=== PATIENT | female | born 1995 | race African-American/Black ===

== ENCOUNTER 2016-06-13 14:04 | Inpatient (IN) | payer MEDICAID, OTHER ==
[~2016-06-13] VITALS: Ht 170.2 cm; Wt 85.3 kg
[~2016-06-13 14:04] MED LIST: FERROUS SULFATE
--- NOTE | 2016-06-13 14:04 | NUR ---
1401- PT BIBA TO BED 1 AT THIS TIME.
[2016-06-13 14:05] VITALS: BP 118/64
--- NOTE | 2016-06-13 14:13 | NUR ---
DR. LUA AT BEDSIDE
[2016-06-13] MEDS ORDERED: ACTIVATED CHARCOAL W/SORBITOL 50 GM/240 ML TUBE PO ONE (14:15)
--- NOTE | 2016-06-13 14:16 | NUR ---
POLICE AT BEDSIDE
--- NOTE | 2016-06-13 14:21 | NUR ---
DR. LUA AT BEDSIDE COUNTING THE EXTRA STRENGTH TYLENOL
--- NOTE | 2016-06-13 14:28 | NUR ---
BIBA AFTER TAKING APPROXIMATELY 20 HEADACHE PILLS; ACETAMINOPHEN 250MG, ASPIRIN 250MG, CAFFEINE 65MG. PT DENIES SUICIDAL IDEATION, SONYA Holcomb STATES SUICIDE NOTE FOUND AT SCENE. DENIES N/V/D; SKIN IS PINK/WARM/DRY; AAOX4 WITH EVEN AND STEADY GAIT; LUNGS CLEAR BL; HR EVEN AND REGULAR; PT DENIES ANY FEVER, CP, SOB, OR COUGH AT THIS TIME; PATIENT STATES PAIN OF 0/10 AT THIS TIME; PATIENT POSITIONED FOR COMFORT; HOB ELEVATED; BEDRAILS UP X2; BED DOWN.
--- NOTE | 2016-06-13 14:44 | NUR ---
PT AAO, STILL DENYING SHE WANTS TO COMMIT SUICIDE, VITAL SIGN STABLE.
--- NOTE | 2016-06-13 15:04 | NUR ---
TALKED TO POISON CONTROL SPOKE TO ROLAND
--- NOTE | 2016-06-13 15:06 | NUR ---
RELAYED TO DR. LUA RESULT OF URINE DIPSTICK
--- NOTE | 2016-06-13 15:13 | NUR ---
PT AAO, SMILING, NO AGITATION, NO DIZZINESS, NO C/O PAIN, SKIN WARM TO TOUCH RESP. EVEN AND UNLABORED, DENIES SUICIDAL IDEATION AT THIS TIME.
--- NOTE | 2016-06-13 15:21 | NUR ---
PT WENT TO THE BATHROOM CLAIMED I WANT TO VOMIT
--- NOTE | 2016-06-13 15:30 | NUR ---
PT BACK FROM BATHROOM, PT SAYS THAT SHE VOMIT IN THE BATHROOM, PT EATING CRACKERS AT THIS TIME, CLAIMED I FEEL BETTER.
--- NOTE | 2016-06-13 15:53 | NUR ---
PT EATING SNACKS BROUGHT BY FRIEND, PT AAO, PT AWARE HER MOTHER IS COMING TO VISIT HER
--- NOTE | 2016-06-13 15:55 | NUR ---
DR. LUA AWARE OF RESULT OF TYLENOL LEVEL AND ASPIRIN LEVEL
--- NOTE | 2016-06-13 16:03 | NUR ---
DR. LUA AWARE OF THE K LEVEL
--- NOTE | 2016-06-13 16:18 | NUR ---
TALKED TO CORINNA IN POISON CONTROL AND RELAYED THE RESULT OF ACETAMINOPHEN AND SALICYLATE
--- NOTE | 2016-06-13 16:38 | NUR ---
PT AAO, FRIEND AT BEDSIDE, NO UNUSUAL OBSERVATION NOTED, NO DIZZINESS NOTED.
[2016-06-13] MEDS ORDERED: NACL 0.9% 1,000 ML IV ONE (16:45)
--- NOTE | 2016-06-13 16:54 | NUR ---
CALL PLACE TO ICU TALKED TO CARLOS FOR REPORT PER RAWI WILL CALL ME BACK.
--- NOTE | 2016-06-13 16:58 | NUR ---
PT EATING DINNER AT THIS TIME, PT AAO
--- NOTE | 2016-06-13 17:34 | NUR ---
Report given to romaine in icu
--- NOTE | 2016-06-13 17:36 | NUR ---
Pt able to eat half of her sandwhich
--- NOTE | 2016-06-13 17:36 | NUR ---
RECEIVED REPORT FROM BRISA ED RN. AWAITING ARRIVAL OF PT TO UNIT.
--- NOTE | 2016-06-13 17:47 | NUR ---
TRANSFER TO ICU, PT AAO, ENDORSED TO FOLLOW UP ACETAMINOPHEN AND SALICYLATE LEVEL.
--- NOTE | 2016-06-13 17:50 | NUR ---
PT ARRIVED VIA GURNEY. NO SIGNS OF ACUTE DISTRESS AT THIS TIME. NO C/O PAIN. PT IS AAOX4. ON ROOM AIR. IV TO LEFT AC #20 PATENT AND INTACT. SKIN IS INTACT. SAFETY PRECAUTIONS IN PLACE WITH BED IN LOWEST POSITION AND SIDE RAILS UP. CALL LIGHT WITHIN REACH. ADMISSION ASSESSMENT COMPLETE. MRSA SWAB OBTAINED. WILL CONTINUE TO MONITOR. TEMP: 98.0. HR: 68, RR: 14, O2: 100%, BP: 100/65.
[2016-06-13 18:00] VITALS: BP 107/64
--- NOTE | 2016-06-13 18:25 | NUR ---
POISON CONTROL NAME CORINNA WAS NOTIFIED OF ACETAMINOPHEN LEVEL CAME DOWN TO 37.6 AND SALICYLATES LEVEL IS 20.1 ( DRAWN AT 1717 HR). PER POISON CONTROL ; DRAW ANOTHER ACETAMINOPHEN /SALICYLATES LEVEL IN 2 HRS.
--- NOTE | 2016-06-13 18:35 | NUR ---
DR. STOREY IN TO SEE PT. WILL FOLLOW UP ON ORDERS.
[2016-06-13] MEDS ORDERED: LORazepam 2 MG/ML VIAL IVP PRN (18:45)
[2016-06-13] MEDS ORDERED: ONDANSETRON 4 MG/2 ML VIAL IVP PRN (18:45)
[2016-06-13] MEDS ORDERED: oxyCODONE 5 MG TAB PO PRN (18:45)
[2016-06-13] MEDS: NACL 0.9% 1,000 ML IV SCH (18:54)
--- NOTE | 2016-06-13 19:15 | NUR ---
ENDORSED CARE TO SAVANNAH WHITMAN. PT IN STABLE CONDITION
[2016-06-13 20:00] VITALS: BP 91/50
--- NOTE | 2016-06-13 20:00 | NUR ---
AAOX4, SR ON THE MONITOR, ON ROOM AIR, RESPIRATIONS NORMAL, IVF OF NS AT 100 ML/HR, IV SITE LAC G#20 PATENT AND INTACT, DENIES PAIN, NO VERBALIZATION OF SUICIDAL IDEATION AT THIS TIME. PATIENT ATE ABOUT TWO SPOONS OF HER DINNER AND FELT NAUSEOUS AND VOMITED SMALL AMOUNT OF GREEN BROWN VOMITUS, ORAL CARE PROVIDED.
[2016-06-13 22:00] VITALS: BP 103/61
--- NOTE | 2016-06-13 22:00 | NUR ---
PATIENT WATCHING TV, DENIES PAIN, NO NAUSEA/VOMITING.
[2016-06-14] VITALS (8 sets, daily range): BP systolic 95–140; BP diastolic 24–92
--- NOTE | 2016-06-14 00:39 | NUR ---
PATIENT WATCHING TV, COOPERATIVE WITH CARE, NO VERBALIZATION OF SUICIDAL IDEATION.
--- NOTE | 2016-06-14 02:34 | NUR ---
PATIENT STILL AWAKE, HAD VISITOR THAT CAME AROUND 0100 AND LEFT AT 0150, PER PATIENT, THAT IS HER SISTER. CLOSE MONITORING CONTINUE, NO VERBALIZATION OF SUICIDAL IDEATIONS.
[2016-06-14] MEDS: NACL 0.9% 1,000 ML IV SCH ×2 (03:46→15:06)
--- NOTE | 2016-06-14 04:25 | NUR ---
PATIENT DENIES PAIN, NO NAUSEA/VOMITING, MONITORED CLOSELY.
--- NOTE | 2016-06-14 06:40 | NUR ---
RECEIVED POTASSIUM LEVEL 2.9 FROM THE LAB AT 0600, DR. HODGE INFORMED AND GAVE NEW ORDERS. AM CARE PROVIDED, PATIENT COOPERATIVE WITH CARE, NO VERBALIZATION OF SUICIDAL IDEATION, DENIES PAIN. KDUR 40 MEQ GIVEN.
[2016-06-14] MEDS ORDERED: POTASSIUM CHLORIDE 10 MEQ TABER PO SCH (07:00)
[2016-06-14] MEDS ORDERED: POTASSIUM CHLORIDE 40 MEQ, LIDOCAINE 1% 25 MG in NACL 0.9% 250 ML IV SCH (07:00)
--- NOTE | 2016-06-14 07:22 | NUR ---
RECEIVED PT FROM J CARLOS NUÑEZ. PT IS SLEEPING BUT EASILY AWAKING BY INITIAL ASSESSMENT. BEDSIDE MONITOR SHOWS SR, PT ON ROOM AIR. NO S/S OF RESPIRATORY DISTRESS NOTED, LUNG SOUNDS CLEAR. ABDOMEN SOFT ,NONTENDER, WITH ACTIVE BOWEL SOUNDS. PT CAN MOVE ALL HER EXTREMITIES. IV TO LEFT AC #20 RUNNING NS 100 ML/HR. SITE INTACT AND PATENT. NO VERBALIZATION OF SUICIDAL IDEATION AT THIS TIME. SAFETY PRECAUTION IN PLACE, HOB ELEVATED AT 30 DEGREES, POC DISCUSSED WITH PT, PT VERBALIZED UNDERSTANDING.WILL CONTINUE TO MONITOR.
--- NOTE | 2016-06-14 08:33 | NUR ---
PATIENT HAS BEEN SCREENED AND CATEGORIZED LOW NUTRITION RISK. PATIENT WILL BE SEEN WITHIN 7 DAYS OF ADMISSION. 06/20/[address]
--- NOTE | 2016-06-14 09:15 | NUR ---
PT RESTING IN BED WATCHING TV. NO S/S OF RESPIRATORY DISTRESS NOTED. CALL LIGHT IN REACH, WILL CONTINUE TO MONITOR.
--- NOTE | 2016-06-14 10:47 | NUR ---
CM NOTE INITIAL REVIEW SENT TO [facility] / FAX# [phone] ATTN: LOIS # [phone]
--- NOTE | 2016-06-14 11:45 | NUR ---
PT WATCHING TV IN BED. VERBALIZED NO SUICIDE IDEATION AT THIS TIME. NO DISCOMFORT OR PAIN COMPLAINED. WILL CONTINUE TO MONITOR.
--- NOTE | 2016-06-14 13:21 | NUR ---
ASSISTED PT TO USE BEDSIDE COMMODE. PT HAD 300 ML CLEAR YELLOW URINE OUTPUT.
--- NOTE | 2016-06-14 13:42 | NUR ---
ZANE DAVIS PRESENT AT PT BEDSIDE TO ASSESS PT.
--- NOTE | 2016-06-14 14:23 | NUR ---
SS NOTE: SENT PSYCH PLACEMENT INQUIRIES TO: - [facility] - [facility] - [facility] - [facility] - [facility]
--- NOTE | 2016-06-14 15:15 | NUR ---
MOTHER AND SISTER AT BEDSIDE, AWARE OF TRANSFER TO [facility].
--- NOTE | 2016-06-14 16:45 | NUR ---
PT AWAKE, ALERT, ORIENTED. BEDSIDE MONITOR SHOWS SR. VSS, DENIES ANY PAIN . DISCHARGED TO [facility]
== END 2016-06-14 16:45 | DRG 812 ==
LOC: MED 14:04 → MIC 16:54
PROVIDERS: ADMIT Internal Medicine Pulmonary Disease; ATTEND Internal Medicine Pulmonary Disease
DX: T39.1X2A Poisoning by 4-Aminophenol derivatives, intentional self-harm, initial encounter (principal); F33.2 Major depressive disorder, recurrent severe without psychotic features; R45.851 Suicidal ideations; T39.092A Poisoning by salicylates, intentional self-harm, initial encounter; T43.612A Poisoning by caffeine, intentional self-harm, initial encounter; G47.9 Sleep disorder, unspecified; Y92.89 Other specified places as the place of occurrence of the external cause; Z91.5 Personal history of self-harm